=== PATIENT | female | born 1960 | race Two or more races ===

== ENCOUNTER 2022-04-02 07:25 | Outpatient (CLI) | payer OTHER | END 2022-04-02 07:33 | disposition home or self-care (01) | LOC: RX STUDY 07:25 | PROVIDERS: ATTEND Internal Medicine Gastroenterology | DX: D50.9 Iron deficiency anemia, unspecified (principal); E11.9 Type 2 diabetes mellitus without complications; R16.0 Hepatomegaly, not elsewhere classified; N28.1 Cyst of kidney, acquired; K76.0 Fatty (change of) liver, not elsewhere classified; K86.9 Disease of pancreas, unspecified ==